=== PATIENT | male | born 1970 | race Two or more races ===

== ENCOUNTER 2023-08-10 21:36 | Emergency (ER) | payer BC, OTHER ==
[~2023-08-10] VITALS: Ht 172.7 cm; Wt 108.9 kg
[2023-08-10] MEDS ORDERED: ONDANSETRON 4 MG TAB.RAPDIS ONE (22:13)
[2023-08-10] MEDS ORDERED: ONDA4TAB11 PO (22:15)
[2023-08-10] MEDS ORDERED: ONDANSETRON 4 MG TAB.RAPDIS SL ONE (22:30)
[2023-08-10 23:06] VITALS: BP 150/83; TEMP 98; O2SAT 98
== END 2023-08-10 23:06 | disposition home or self-care (01) ==
LOC: ER 21:38
DX: R11.2 Nausea with vomiting, unspecified (principal); T40.715A Adverse effect of cannabis, initial encounter; G43.909 Migraine, unspecified, not intractable, without status migrainosus; Y92.89 Other specified places as the place of occurrence of the external cause
CPT/HCPCS: 99283; Q0162